=== PATIENT | male | born 1970 | race Caucasian/White ===

== ENCOUNTER 2022-09-07 16:17 | Emergency (ER) | payer OTHER ==
[~2022-09-07] VITALS: Ht 180.3 cm; Wt 99.8 kg
[2022-09-07 16:17] VITALS: TEMP 97.6
[2022-09-07] MEDS ORDERED: METO1TAB32 PO (20:40)
[2022-09-07] MEDS ORDERED: HYDR12.55 PO (20:40)
[2022-09-07] MEDS ORDERED: METF10004 PO ×2 (20:40→21:12)
[2022-09-07] MEDS ORDERED: ATOR1TAB21 PO ×2 (20:40→21:12)
[2022-09-07] MEDS ORDERED: AMLO1TAB25 PO (20:41)
[2022-09-07] MEDS ORDERED: DULO1CAP6 PO ×2 (20:41→21:12)
[2022-09-07] MEDS ORDERED: MELO15TA28 PO ×2 (20:41→21:12)
[2022-09-07] MEDS ORDERED: AMLO10TA PO (21:12)
[2022-09-07] MEDS ORDERED: TOPR25TA PO (21:12)
[2022-09-07] MEDS ORDERED: HYDR-3490 PO (21:12)
[2022-09-07 21:17] VITALS: BP 180/84; O2SAT 99
== END 2022-09-07 21:19 | disposition home or self-care (01) ==
LOC: M ED 16:17
DX: Z76.0 Encounter for issue of repeat prescription (principal); E78.5 Hyperlipidemia, unspecified; E11.9 Type 2 diabetes mellitus without complications; I10 Essential (primary) hypertension; F17.200 Nicotine dependence, unspecified, uncomplicated; Z79.4 Long term (current) use of insulin; Z79.02 Long term (current) use of antithrombotics/antiplatelets; Z79.899 Other long term (current) drug therapy

== ENCOUNTER → 2023-01-04 | Outpatient (CLI) | payer OTHER, MEDICAID ==
[~2023-01-04] MED LIST: AMLO10TA PO; AMLO1TAB25 PO; ATOR1TAB21 PO; DULO1CAP6 PO; HYDR-3490 PO; HYDR12.55 PO; MELO15TA28 PO; METF10004 PO; METO1TAB32 PO; TOPR25TA PO
[2023-01-04 18:03] LABS: BASO # 0.1 10^3/uL (0.0-0.2); BASO % 0.9 % (0.0-1.0); EOS # 0.6 10^3/uL (0.0-0.5); EOS % 5.8 % (0.0-3.0); HEMATOCRIT 45.7 % (42.0-52.0); LYMPH % 30.8 % (24.0-44.0); MEAN CORPUSCULAR HEMOGLOBIN 29.8 pg (27.0-33.0); MEAN CORPUSCULAR HGB CONC 32.8 g/dl (32.0-36.5); MEAN CORPUSCULAR VOLUME 90.7 fl (80.0-96.0); MONO # 0.7 10^3/uL (0.0-0.8); MONO % 6.9 % (2.0-8.0); NEUTROPHILS # 5.3 10^3/uL (1.5-8.5); NEUTROPHILS % 55.3 % (36.0-66.0); PLATELET COUNT, AUTOMATED 321 10^3/uL (150-450); RED BLOOD COUNT 5.04 10^6/uL (4.30-6.10); WHITE BLOOD COUNT 9.7 10^3/uL (4.0-10.0)
[2023-01-04 18:19] LABS: HEMOGLOBIN A1c 6.8 % (4.0-6.0)
[2023-01-04 18:25] LABS: CREATININE, URINE 84.6 MG/DL
[2023-01-04 18:30] LABS: ALBUMIN 4.1 G/DL (3.2-5.2); ALKALINE PHOSPHATASE 60 U/L (46-116); ALT/SGPT 43 U/L (7.0-40); AST/SGOT 20 U/L (<34); BILIRUBIN,TOTAL 0.6 MG/DL (0.3-1.2); BLOOD UREA NITROGEN 17 MG/DL (9-23); CALCIUM LEVEL 9.4 MG/DL (8.5-10.1); CARBON DIOXIDE LEVEL 31 MMOL/L (20-31); CHLORIDE LEVEL 103 MMOL/L (98-107); CHOLESTEROL LEVEL 141 MG/DL (<200); CHOLESTEROL RISK RATIO 3.99 (<5); GLOMERULAR FILTRATION RATE > 60.0 (>56); GLUCOSE, FASTING 148 MG/DL (60-100); HDL CHOLESTEROL 35.3 MG/DL (>40); LDL CHOLESTEROL 83.3 MG/DL (<100); MAGNESIUM LEVEL 1.9 MG/DL (1.8-2.4); NON-HDL-C 105.7 MG/DL; POTASSIUM SERUM 4.6 MMOL/L (3.5-5.1); SODIUM LEVEL 141 MMOL/L (136-145); THYROID STIMULATING HORMONE 1.107 uIU/ML (0.55-4.78); TOTAL PROTEIN 6.9 G/DL (5.7-8.2); TRIGLYCERIDES LEVEL 112 MG/DL (<150)
[2023-01-04 18:31] LABS: FREE T4 1.09 NG/DL (0.89-1.76)
[2023-01-04 18:32] LABS: TOTAL 25(OH) VITAMIN D 29.2 NG/ML (20.0-100.0); VITAMIN B12 LEVEL 327 PG/ML (211-911)
== END ==
LOC: M WUC 10:56
PROVIDERS: ATTEND Nurse Practitioner Family
DX: E11.9 Type 2 diabetes mellitus without complications (principal); E78.2 Mixed hyperlipidemia; E55.9 Vitamin D deficiency, unspecified; I10 Essential (primary) hypertension; E53.8 Deficiency of other specified B group vitamins

== ENCOUNTER → 2023-06-28 | Outpatient (REF) | payer OTHER, MEDICAID ==
[2023-06-28 12:13] LABS: BASO # 0.1 10^3/uL (0.0-0.2); BASO % 0.6 % (0.0-1.0); EOS # 0.5 10^3/uL (0.0-0.5); EOS % 5.1 % (0.0-3.0); HEMATOCRIT 45.3 % (42.0-52.0); HEMOGLOBIN 14.7 g/dl (13.5-17.5); LYMPH # 2.6 10^3/uL (1.5-5.0); LYMPH % 26.1 % (24.0-44.0); MEAN CORPUSCULAR HEMOGLOBIN 29.2 pg (27.0-33.0); MEAN CORPUSCULAR HGB CONC 32.5 g/dl (32.0-36.5); MEAN CORPUSCULAR VOLUME 90.1 fl (80.0-96.0); MONO # 0.8 10^3/uL (0.0-0.8); MONO % 7.9 % (2.0-8.0); NEUTROPHILS # 5.9 10^3/uL (1.5-8.5); NEUTROPHILS % 59.9 % (36.0-66.0); PLATELET COUNT, AUTOMATED 332 10^3/uL (150-450); RED BLOOD COUNT 5.03 10^6/uL (4.30-6.10); WHITE BLOOD COUNT 9.9 10^3/uL (4.0-10.0)
[2023-06-28 12:45] LABS: ALBUMIN 3.9 G/DL (3.2-5.2); ALKALINE PHOSPHATASE 74 U/L (46-116); ALT/SGPT 37 U/L (7.0-40); AST/SGOT 19 U/L (<34); BILIRUBIN,TOTAL 0.5 MG/DL (0.3-1.2); BLOOD UREA NITROGEN 17 MG/DL (9-23); CALCIUM LEVEL 8.8 MG/DL (8.5-10.1); CARBON DIOXIDE LEVEL 33 MMOL/L (20-31); CHLORIDE LEVEL 102 MMOL/L (98-107); CHOLESTEROL LEVEL 126 MG/DL (<200); CHOLESTEROL RISK RATIO 3.23 (<5); CREATININE FOR GFR 0.75 MG/DL (0.70-1.30); GLOMERULAR FILTRATION RATE > 60.0 (>56); GLUCOSE, FASTING 134 MG/DL (60-100); LDL CHOLESTEROL 72.2 MG/DL (<100); POTASSIUM SERUM 4.4 MMOL/L (3.5-5.1); SODIUM LEVEL 139 MMOL/L (136-145); TOTAL PROTEIN 6.9 G/DL (5.7-8.2); TRIGLYCERIDES LEVEL 74 MG/DL (<150)
[2023-06-28 12:48] LABS: TOTAL 25(OH) VITAMIN D 30.6 NG/ML (20.0-100.0)
[2023-06-28 12:50] LABS: VITAMIN B12 LEVEL 1551 PG/ML (211-911)
[2023-06-28 13:21] LABS: CREATININE, URINE 108.1 MG/DL; MAU/CREAT RATIO 9.2 MCG/MG (0.0-30.0)
[2023-06-28 13:27] LABS: HEMOGLOBIN A1c 7.5 % (4.0-6.0)
== END ==
LOC: M LABWUC 10:19
PROVIDERS: ATTEND Nurse Practitioner Family
DX: E11.9 Type 2 diabetes mellitus without complications (principal); E78.2 Mixed hyperlipidemia; E55.9 Vitamin D deficiency, unspecified; I10 Essential (primary) hypertension; E53.8 Deficiency of other specified B group vitamins

== ENCOUNTER 2023-10-05 20:24 | Emergency (ER) | payer MEDICAID, OTHER ==
[~2023-10-05] VITALS: Ht 180.3 cm; Wt 92.0 kg
[2023-10-05 20:26] VITALS: BP 146/84; TEMP 99.1; O2SAT 99
[2023-10-06] MEDS: IBUPROFEN 800 MG TAB PO ONE (01:20)
[2023-10-06] MEDS ORDERED: PERC5TAB12 PO (01:35)
[2023-10-06] MEDS: OXYCODONE/APAP 5MG/325MG(HOME DOSE PACK) PO ONE (02:10)
== END 2023-10-06 02:30 | disposition home or self-care (01) ==
LOC: M ED 20:24
DX: S52.352A Displaced comminuted fracture of shaft of radius, left arm, initial encounter for closed fracture (principal); W19.XXXA Unspecified fall, initial encounter; F17.200 Nicotine dependence, unspecified, uncomplicated; Z79.4 Long term (current) use of insulin; Z79.899 Other long term (current) drug therapy; Z79.02 Long term (current) use of antithrombotics/antiplatelets; Z79.1 Long term (current) use of non-steroidal anti-inflammatories (NSAID); Y92.9 Unspecified place or not applicable; Y93.89 Activity, other specified; Y99.9 Unspecified external cause status

== ENCOUNTER 2023-10-15 05:53 | Day surgery (SDC) | payer OTHER ==
[~2023-10-15] VITALS: Ht 177.8 cm; Wt 91.8 kg
[~2023-10-15 05:53] MED LIST changes: +MULTTAB86 PO; +PANT40TA29 PO; +PERC5TAB12 PO; +SEMA0.257 SQ; +SERT50TA29 PO
[2023-10-15] MEDS ORDERED: GLUCOSE 4 GM CHEW PO PRN (06:30)
[2023-10-15] MEDS ORDERED: GLUCAGON INJ 1MG VIAL SC PRN (06:30)
[2023-10-15] MEDS ORDERED: DEXTROSE 50% 50ML SYRINGE IV PRN (06:30)
[2023-10-15] MEDS ORDERED: INSULIN LISPRO (NovoLOG) PER UNIT SC PRN (06:30)
[2023-10-15] MEDS ORDERED: ACETAMINOPHEN 1000MG 100ML IV BAG As Ordered ONE (06:55)
[2023-10-15] MEDS ORDERED: PHENYLephrine 500MCG 5ML (100MCG/ML) SYRINGE As Ordered ONE (06:55)
[2023-10-15] MEDS ORDERED: LIDOCAINE 2% 100MG/5ML SDV (FOR ANES.) As Ordered ONE (07:00)
[2023-10-15] MEDS: LR 1,000 ML IV SCH (07:00)
[2023-10-15] MEDS ORDERED: propofoL 200 MG/20 ML VIAL As Ordered ONE (07:00)
[2023-10-15] MEDS ORDERED: ONDANSETRON 4MG 2ML VIAL As Ordered ONE (07:00)
[2023-10-15] MEDS ORDERED: fentaNYL 100 MCG/2 ML INJECTION As Ordered ONE (07:02)
[2023-10-15] MEDS ORDERED: KETOROLAC 60MG 2ML VIAL As Ordered ONE (07:02)
[2023-10-15] MEDS ORDERED: MIDAZOLAM INJ 2MG/2ML VIAL As Ordered ONE (07:03)
[2023-10-15] MEDS: BACITRACIN OINTMENT 30GM TUBE As Ordered ONE (07:10)
[2023-10-15] MEDS: fentaNYL 100 MCG/2 ML INJECTION IV PRN ×2 (07:32→10:00)
[2023-10-15] MEDS: MIDAZOLAM INJ 2MG/2ML VIAL IV PRN (07:32)
[2023-10-15] MEDS: ROPIvacaine 0.5% 30ML VIAL PN ONE (07:36)
[2023-10-15] MEDS: dexAMETHasone 10MG/1ML VIAL PRES.FREE PN ONE (07:36)
[2023-10-15] MEDS: LIDOCAINE 1% SDV 5ML VIAL PN ONE (07:36)
[2023-10-15] MEDS: EPINEPHrine INJ 1 MG/ML 1ML AMP PN ONE (07:36)
[2023-10-15] MEDS ORDERED: ROCURONIUM BROMIDE 50MG/5ML VIAL As Ordered ONE (07:48)
[2023-10-15] MEDS: ceFAZolin 2 GM/D5W 50 ML IV BAG As Ordered ONE (07:55)
[2023-10-15] MEDS ORDERED: ePHEDrine SULFATE 25 MG/5 ML(5MG/ML) SYRINGE As Ordered ONE (08:13)
[2023-10-15] MEDS ORDERED: ESMOLOL INJ 100MG/10ML VIAL As Ordered ONE (08:42)
[2023-10-15] MEDS ORDERED: SUGAMMADEX SODIUM 500 MG/5 ML VIAL (BRIDION) As Ordered ONE (09:00)
[2023-10-15] MEDS ORDERED: ONDANSETRON 4MG 2ML VIAL IV PRN (09:25)
[2023-10-15] MEDS ORDERED: LR 1,000 ML IV SCH (09:25)
[2023-10-15] MEDS: ceFAZolin SOD 2 GM in IV 1 EA IV ONE (09:28)
[2023-10-15] MEDS ORDERED: PERC5TAB12 PO (09:32)
[2023-10-15] MEDS: oxyCODONE 5MG TAB PO PRN (09:36)
[2023-10-15] MEDS: HYDROMORPHONE HCL 0.5 MG/ 0.5 ML SYRINGE IV PRN ×2 (09:36→11:19)
[2023-10-15] MEDS: INSULIN LISPRO (NovoLOG) PER UNIT SC ONE (09:47)
[2023-10-15 12:38] VITALS: BP 135/74; TEMP 97.2; O2SAT 97
== END 2023-10-15 13:13 | disposition home or self-care (01) ==
LOC: M SDC 05:53
PROVIDERS: ATTEND Orthopaedic Surgery Hand Surgery
DX: S52.572A Other intraarticular fracture of lower end of left radius, initial encounter for closed fracture (principal); E11.40 Type 2 diabetes mellitus with diabetic neuropathy, unspecified; I10 Essential (primary) hypertension; W01.0XXA Fall on same level from slipping, tripping and stumbling without subsequent striking against object, initial encounter; Y93.9 Activity, unspecified; Z79.899 Other long term (current) drug therapy; Y92.9 Unspecified place or not applicable; E78.5 Hyperlipidemia, unspecified; Z79.84 Long term (current) use of oral hypoglycemic drugs; Z79.85 Long-term (current) use of injectable non-insulin antidiabetic drugs; K21.9 Gastro-esophageal reflux disease without esophagitis; Z87.19 Personal history of other diseases of the digestive system; F17.210 Nicotine dependence, cigarettes, uncomplicated
CPT/HCPCS: 25609; 76000; 93005; C1713; J0131; J0665; J0690; J1100; J1170; J1805; J1885; J2250; J2405; J3010

== ENCOUNTER → 2023-10-26 | Outpatient (CLI) | payer OTHER | LOC: M SOG 07:56 | PROVIDERS: ATTEND Physician Assistant | DX: S52.572D Other intraarticular fracture of lower end of left radius, subsequent encounter for closed fracture with routine healing (principal) ==

== ENCOUNTER → 2023-12-17 | Outpatient (CLI) | payer OTHER | LOC: M SOG 07:51 | PROVIDERS: ATTEND Physician Assistant | DX: S52.572A Other intraarticular fracture of lower end of left radius, initial encounter for closed fracture (principal); Z53.9 Procedure and treatment not carried out, unspecified reason ==

== ENCOUNTER → 2023-12-23 | Outpatient (CLI) | payer OTHER ==
[2023-12-23 11:16] LABS: BASO # 0.1 10^3/uL (0.0-0.2); BASO % 0.7 % (0.0-1.0); EOS # 0.6 10^3/uL (0.0-0.5); EOS % 5.6 % (0.0-3.0); HEMATOCRIT 44.6 % (42.0-52.0); HEMOGLOBIN 14.5 g/dl (13.5-17.5); LYMPH # 2.8 10^3/uL (1.5-5.0); LYMPH % 27.1 % (24.0-44.0); MEAN CORPUSCULAR HEMOGLOBIN 30.1 pg (27.0-33.0); MEAN CORPUSCULAR HGB CONC 32.5 g/dl (32.0-36.5); MEAN CORPUSCULAR VOLUME 92.5 fl (80.0-96.0); MONO # 0.8 10^3/uL (0.0-0.8); MONO % 8.3 % (2.0-8.0); NEUTROPHILS # 5.9 10^3/uL (1.5-8.5); PLATELET COUNT, AUTOMATED 349 10^3/uL (150-450); RED BLOOD COUNT 4.82 10^6/uL (4.30-6.10); WHITE BLOOD COUNT 10.2 10^3/uL (4.0-10.0)
[2023-12-23 11:49] LABS: CREATININE, URINE 120.7 MG/DL; MALB URINE SIEMENS < 3.0 MG/L
[2023-12-23 11:51] LABS: ALKALINE PHOSPHATASE 68 U/L (46-116); ALT/SGPT 24 U/L (7.0-40); AST/SGOT 11 U/L (<34); BILIRUBIN,TOTAL 0.4 MG/DL (0.3-1.2); BLOOD UREA NITROGEN 20 MG/DL (9-23); CALCIUM LEVEL 9.8 MG/DL (8.5-10.1); CARBON DIOXIDE LEVEL 32 MMOL/L (20-31); CHLORIDE LEVEL 107 MMOL/L (98-107); CHOLESTEROL LEVEL 145 MG/DL (<200); CHOLESTEROL RISK RATIO 3.61 (<5); CREATININE FOR GFR 0.72 MG/DL (0.70-1.30); GLOMERULAR FILTRATION RATE > 60.0 (>56); GLUCOSE, FASTING 154 MG/DL (60-100); HDL CHOLESTEROL 40.1 MG/DL (>40); LDL CHOLESTEROL 87.3 MG/DL (<100); NON-HDL-C 104.9 MG/DL; POTASSIUM SERUM 3.9 MMOL/L (3.5-5.1); SODIUM LEVEL 141 MMOL/L (136-145); TOTAL PROTEIN 7.1 G/DL (5.7-8.2); TRIGLYCERIDES LEVEL 88 MG/DL (<150)
[2023-12-23 11:53] LABS: TOTAL 25(OH) VITAMIN D 32.4 NG/ML (20.0-100.0); VITAMIN B12 LEVEL 1025 PG/ML (211-911)
== END ==
LOC: M WUC 08:21
PROVIDERS: ATTEND Nurse Practitioner Family
DX: E11.9 Type 2 diabetes mellitus without complications (principal); E78.2 Mixed hyperlipidemia; E55.9 Vitamin D deficiency, unspecified; E53.8 Deficiency of other specified B group vitamins

== ENCOUNTER → 2023-12-28 | Outpatient (CLI) | payer OTHER ==
[2023-12-28 16:20] LABS: HIV 1&2 SCREEN NEGATIVE (NEGATIVE)
[2023-12-28 17:13] LABS: HEMOGLOBIN A1c 6.6 % (4.0-6.0)
[2023-12-28 17:29] LABS: GC DNA AMPLIFICATION NEGATIVE (NEGATIVE)
== END ==
LOC: M PLALAB 12:40
PROVIDERS: ATTEND Nurse Practitioner Family
DX: Z11.3 Encounter for screening for infections with a predominantly sexual mode of transmission (principal)

== ENCOUNTER → 2024-02-02 | Outpatient (CLI) | payer OTHER | LOC: M SOG 07:58 | PROVIDERS: ATTEND Physician Assistant | DX: S52.572A Other intraarticular fracture of lower end of left radius, initial encounter for closed fracture (principal); Z53.9 Procedure and treatment not carried out, unspecified reason ==